=== PATIENT | female | born 1970 | race American Indian/Alaskan Native ===

== ENCOUNTER 2018-10-05 13:59 | Emergency (ER) | payer BC ==
[2018-10-05 14:38] VITALS: O2SAT 99
[2018-10-05] MEDS ORDERED: Sodium Chloride 0.9% 1,000 ML IV ONE (15:17)
[2018-10-05] MEDS ORDERED: Sodium Chloride 0.9% 1,000 ML ONE (16:01)
[2018-10-05 16:03] LABS: BASO # 0.1 K/uL (0.0-0.2); BASO % 1.2 % (0.0-2.0); EOS % 0.4 % (0.0-4.0); HEMOGLOBIN 13.1 g/dL (11.0-16.0); LYMPH # 2.3 K/uL (1.0-4.3); LYMPH % 37.2 % (20.0-40.0); MEAN CELL VOLUME 84.6 fL (81.0-99.0); MEAN CORPUSCULAR HEMOGLOBIN 27.8 pg (27.0-31.0); MEAN CORPUSCULAR HGB CONC 32.8 g/dL (33.0-37.0); MEAN PLATELET VOLUME 8.4 fL (7.2-11.7); MONO # 0.3 K/uL (0.0-0.8); MONO % 4.7 % (0.0-10.0); NEUT # 3.5 K/uL (1.8-7.0); NEUT % 56.5 % (50.0-75.0); RBC 4.73 Mil/uL (3.80-5.20); RED CELL DISTRIBUTION WIDTH 12.9 % (11.5-14.5); WHITE BLOOD COUNT 6.1 K/uL (4.8-10.8)
--- NOTE | 2018-10-05 16:08 | C.PDOC ---
History Of Present Illness 48 year old female, whose past medical history includes diabetes and gastroparesis, presents to the ED for evaluation of lower abdominal pain and vomiting which began today. Patient reports seeing some blood in her emesis today. She states she went to see her GI doctor today, but her symptoms seemed so severe that she was referred to the ED for further evaluation. Patient also reports chest pain after crying in the ED. She denies radiation of pain elsewhere as well as fever, chills, cough, syncope, recent travel. Patient states she had a normal bowel movement today. She was history of hospitalization on 06/2018 for gastroparesis. Time Seen by Provider: 10/05/18 14:58 Chief Complaint (Nursing): Abdominal Pain History Per: Patient History/Exam Limitations: no limitations Onset/Duration Of Symptoms: Hrs Current Symptoms Are (Timing): Still Present Location Of Pain/Discomfort: Other (lower abdomen ) Quality Of Discomfort: "Pain" Associated Symptoms: Nausea, Vomiting. denies: Fever, Chills, Constipation Additional History Per: Patient Past Medical History Reviewed: Historical Data, Nursing Documentation, Vital Signs Vital Signs: Last Vital Signs Temp 98.3 F 10/05/18 14:22 Pulse 109 H 10/05/18 14:22 Resp 20 10/05/18 14:22 BP Pulse Ox 99 10/05/18 14:22 - Medical History PMH: Diabetes Surgical History: No Surg Hx - [facility] Procedures LOC EXC LES METATAR/TAR (04/29/00) Family History: States: Unknown Family Hx - Social History Hx Tobacco Use: No Hx Alcohol Use: No Hx Substance Use: No - Immunization History Hx Tetanus Toxoid Vaccination: Yes Hx Influenza Vaccination: Yes Hx Pneumococcal Vaccination: Yes Review Of Systems Constitutional: Negative for: Fever, Chills Cardiovascular: Positive for: Chest Pain Respiratory: Negative for: Cough Gastrointestinal: Positive for: Nausea, Vomiting, Abdominal Pain, Hematemesis Physical Exam - Physical Exam Appears: Non-toxic, No Acute Distress, Chronically Ill, Other (thin ) Skin: Normal Color, Warm, Dry Head: Atraumatic, Normacephalic Eye(s): bilateral: Normal Inspection Oral Mucosa: Moist Neck: Supple Chest: Symmetrical, No Deformity, No Tenderness Cardiovascular: Rhythm Regular, No Murmur, Other (tachycardic. normal S1/S2) Respiratory: Normal Breath Sounds, No Rales, No Rhonchi, No Wheezing Gastrointestinal/Abdominal: Soft, Tenderness (diffuse ), No Guarding, No Rebound Extremity: Normal ROM, Capillary Refill (less than 2 seconds ) Neurological/Psych: Oriented x3, Normal Speech, Normal Cognition ED Course And Treatment - Laboratory Results Result Diagrams: 10/05/18 15:57 10/05/18 15:57 ECG: Interpreted By Me, Viewed By Me ECG Rhythm: Sinus Rhythm Interpretation Of ECG: Normal Sinus Rhythm at rate 74bpm. Rate From EC O2 Sat by Pulse Oximetry: 99 (on RA) Pulse Ox Interpretation: Normal - Other Rad CXR X-Ray: Viewed By Me, Read By Radiologist Interpretation: HISTORY: chest pain. COMPARISON: None available. TECHNIQUE: Chest PA and lateral. FINDINGS: LUNGS: Hyperinflation may be seen in setting of COPD. No focal consolidation. Please note that chest x-ray has limited sensitivity for the detection of pulmonary masses. PLEURA: No significant pleural effusion identified. No definite pneumothorax . CARDIOVASCULAR: Heart size appears within normal limits. Atherosclerotic calcifications present. OSS EOUS STRUCTURES: No acute osseous abnormality identified. VISUALIZED UPPER ABDOMEN: Unremarkable. OTHER FINDINGS: None. IMPRESSION: Hyperinflation may be seen in setting of COPD. - CT Scan/US Abdomen obstructive series Other Rad Studies (CT/US): Interpreted By Me (preliminary read shows no obstruction, no free air. stool scattered throughout colon ) Medical Decision Making Medical Decision Making: Impression: 48 year old female with lower abdominal pain, vomiting Plan: * bloodwork * urinalysis * CXR * Obstructive Series Abdomen XR * EKG * Reglan IVP * IV Fluids * reassess and disposition Progress: Bloodwork, urinalysis, CXR, Obstructive Series XR, EKG ordered and reviewed. Reglan IVP and IV Fluids given. 1855: Case discussed with Dr. Taylor, who advises patient to reschedule ap pointment with him. On reassessment, patient is resting comfortably, showing no signs of distress and is stable for discharge. Patient is advised to follow up with Dr. Taylor within 1-2 days for further evaluation. Advised to return to the ED if symptoms persist or worsen. Disposition Counseled Patient/Family Regarding: Studies Performed, Diagnosis, Need For Followup - Disposition Referrals: Nasim Taylor MD [Staff Provider] - Disposition: HOME/ ROUTINE Disposition Time: 19:20 Condition: IMPROVED Additional Instructions: GURPREET VIVAS, thank you for letting us take care of you today. Your provider was Alethea Campbell MD and you were treated for SENT BY PMD/BODY PAIN. The emergency medical care you received today was directed at your acute symptoms. If you were prescribed any medication, please fill it and take as directed. It may take several days for your symptoms to resolve. Return to the Emergency Department if your symptoms worsen, do not improve, or if you have any other problems. Please contact your doctor . Bring any paperwork you were given at discharge with you along with any medications you are taking to your follow up visit. Our treatment cannot replace ongoing medical care by a primary care provider outside of the emergency department. Thank you for allowing the [facility] team to be part of your care today. If you had an X-Ray or CT scan: A Radiologist will review the ED reading if any change in treatment is needed we will contact you. If you had a blood, urine, or wound culture: It will take several days for the results, if any change in treatment is needed we will contact you. If you had an STI test: It will take 48 hours for the results. Please call after 1 week if you have not heard back. Instructions: Hypokalemia (DC), Acute Abdomen (Belly Pain), Adult (DC), Hyperglycemia, Adult (DC), Gastroparesis (Delayed Gastric Emptying) Forms: [employer] [facility] (Khmer), General Discharge Instructions - POA Present On Arrival: None - Clinical Impression Clinical Impression: Abdominal pain, Constipation, Gastroparesis, Hyperglycemia, Hypokalemia - Scribe Statement The provider has reviewed the documentation as recorded by the Scribe (Qi John) Provider Attestation: All medical record entries made by the Scribe were at my direction and person ally dictated by me. I have reviewed the chart and agree that the record accurately reflects my personal performance of the history, physical exam, medical decision making, and the department course for this patient. I have also personally directed, reviewed, and agree with the discharge instructions and disposition.
[2018-10-05 16:15] LABS: ALB/GLOB RATIO 1.3 (1.0-2.1); ALBUMIN 4.3 g/dL (3.5-5.0); ALT/SGPT 20 U/L (9-52); AST/SGOT 20 U/L (14-36); BLOOD UREA NITROGEN 9 mg/dL (7-17); CALCIUM 9.5 mg/dl (8.6-10.4); GFR NON-AFRICAN AMERICAN > 60; LIPASE 25 U/L (23-300)
[2018-10-05] MEDS ORDERED: Potassium Chloride 20 mEq ER Tab PO STA (16:18)
[2018-10-05] MEDS ORDERED: Potassium Chloride 20 mEq ER Tab PO ONE (17:00)
[2018-10-05 17:13] LABS: SQUAMOUS EPITHIAL 2 /hpf (0-5); URINE BILIRUBIN NEGATIVE (NEGATIVE); URINE BLOOD NEGATIVE (NEGATIVE); URINE CLARITY Clear (Clear); URINE COLOR Yellow (YELLOW); URINE GLUCOSE (UA) 3+ mg/dL (Normal); URINE LEUKOCYTE ESTERASE NEG Leu/uL (Negative); URINE PROTEIN NEGATIVE (NEGATIVE)
--- NOTE | 2018-10-05 17:50 | RAD ---
HISTORY: chest pain COMPARISON: None available TECHNIQUE: Chest PA and lateral FINDINGS: LUNGS: Hyperinflation may be seen in setting of COPD. No focal consolidation. Please note that chest x-ray has limited sensitivity for the detection of pulmonary masses. PLEURA: No significant pleural effusion identified. No definite pneumothorax . CARDIOVASCULAR: Heart size appears within normal limits. Atherosclerotic calcifications present. OSSEOUS STRUCTURES: No acute osseous abnormality identified. VISUALIZED UPPER ABDOMEN: Unremarkable. OTHER FINDINGS: None. IMPRESSION: Hyperinflation may be seen in setting of COPD.
[2018-10-05 17:55] VITALS: PULSE 86
[2018-10-05 19:31] VITALS: BP 130/86; RESP 18; TEMP 98.6
--- NOTE | 2018-10-06 13:38 | RAD ---
Date of service: 10/05/2018 PROCEDURE: Radiographs of the lower chest and abdomen (obstructive series) HISTORY: abd pain COMPARISON: None available. TECHNIQUE: AP radiograph of the chest, with upright and supine radiographs of the abdomen. FINDINGS: CHEST: Mid to upper lung rey are excluded from view. Lung bases reveal: Partially imaged heart size within normal limits. No visible focal consolidation, significant pleural effusion, or definite pneumothorax. ABDOMEN AND PELVIS: Nonspecific bowel gas pattern. No definite free air. Pelvic calcifications, likely phleboliths. No acute osseous abnormality is detected. IMPRESSION: No acute findings identified.
== END 2018-10-05 19:31 | disposition home or self-care (01) ==
LOC: C.ER 13:59
DX: K59.00 Constipation, unspecified (principal); E87.6 Hypokalemia; E11.65 Type 2 diabetes mellitus with hyperglycemia; E11.43 Type 2 diabetes mellitus with diabetic autonomic (poly)neuropathy; K31.84 Gastroparesis; R10.30 Lower abdominal pain, unspecified
CPT/HCPCS: 71046; 74022; 80053; 81001; 83690; 84484; 84703; 85025; 96374; 99284; J2765; J7030

== ENCOUNTER 2018-10-25 10:54 | Outpatient (CLI) | payer BC | END 2018-10-25 10:55 | disposition home or self-care (01) | LOC: C.CTH 10:54 | DX: R63.4 Abnormal weight loss (principal) ==

== ENCOUNTER 2018-11-26 11:07 | Emergency (ER) | payer BC ==
[2018-11-26] MEDS ORDERED: Sodium Chloride 0.9% 1,000 ML IV ONE (11:46)
[2018-11-26] MEDS ORDERED: Sodium Chloride 0.9% 1,000 ML ONE (12:12)
[2018-11-26 12:37] LABS: BASO # 0.1 K/uL (0.0-0.2); BASO % 1.3 % (0.0-2.0); EOS % 0.2 % (0.0-4.0); HEMOGLOBIN 13.5 g/dL (11.0-16.0); LYMPH # 2.1 K/uL (1.0-4.3); MEAN CELL VOLUME 85.7 fL (81.0-99.0); MEAN CORPUSCULAR HEMOGLOBIN 28.4 pg (27.0-31.0); MEAN CORPUSCULAR HGB CONC 33.1 g/dL (33.0-37.0); MEAN PLATELET VOLUME 7.8 fL (7.2-11.7); MONO # 0.7 K/uL (0.0-0.8); MONO % 9.8 % (0.0-10.0); NEUT # 3.9 K/uL (1.8-7.0); NEUT % 57.7 % (50.0-75.0); NRBC % 0.1 % (0.0-2.0); RBC 4.76 Mil/uL (3.80-5.20); RED CELL DISTRIBUTION WIDTH 13.1 % (11.5-14.5); WHITE BLOOD COUNT 6.8 K/uL (4.8-10.8)
[2018-11-26] MEDS ORDERED: Iodixanol 320 mg/ml 150 ml Bottle IV ONE (12:49)
--- NOTE | 2018-11-26 12:59 | C.PDOC ---
History Of Present Illness 48 year old female presents to the ED for evaluation s/p syncopal episode. Patient was at work when she passed out. States she is unsure why. Patient reports having a normal breakfast this morning and took her blood sugar medications as per usual. She then awoke on the ground and had developed abdominal pain associated with nausea. Pain is described as diffuse, but worse at the upper quadrants. She also reports feeling tired. Otherwise patient denies any injury, dizziness, headache, vomiting, diarrhea, visual changes, slurred s peech, chest pain, or SOB. Patient does have a PMHx of gastroparesis as well as diabetes mellitus. Time Seen by Provider: 11/26/18 11:32 Chief Complaint (Nursing): Abdominal Pain History Per: Patient History/Exam Limitations: no limitations Onset/Duration Of Symptoms: Hrs Current Symptoms Are (Timing): Still Present Quality Of Discomfort: "Pain" Past Medical History Reviewed: Historical Data, Nursing Documentation, Vital Signs Vital Signs: Last Vital Signs Temp Pulse 99 H 11/26/18 11:10 Resp 22 11/26/18 11:10 BP Pulse Ox 96 11/26/18 11:10 - Medical History PMH: Diabetes Other PMH: Gastroparesis - [facility] Procedures LOC EXC LES METATAR/TAR (04/29/00) Family History: States: Unknown Family Hx - Social History Hx Tobacco Use: No Hx Alcohol Use: No Hx Substance Use: No - Immunization History Hx Tetanus Toxoid Vaccination: Yes Hx Influenza Vaccination: Yes Hx Pneumococcal Vaccination: Yes Review Of Systems Constitutional: Positive for: Weakness ("feeling tired"). Negative for: Fever, Sweats Cardiovascular: Negative for: Chest Pain, Palpitations Respiratory: Negative for: Cough, Shortness of Breath Gastrointestinal: Positive for: Nausea, Abdominal Pain. Negative for: Vomiting, Diarrhea Musculoskeletal: Negative for: Back Pain, Leg Pain Skin: Negative for: Lesions, Bruising Neurological: Positive for: Other (+syncopal episode). Negative for: Weakness, Numbness, Headache, Dizziness Physical Exam - Physical Exam Appears: Well, Non-toxic, No Acute Distress Skin: Warm, Dry, No Diaphoretic Head: Atraumatic, Normacephalic Eye(s): bilateral: Normal Inspection Oral Mucosa: Moist Neck: Normal ROM Chest: Symmetrical Cardiovascular: Rhythm Regular, No Murmur Respiratory: Normal Breath Sounds, No Accessory Muscle Use Gastrointestinal/Abdominal: Soft, Tenderness (diffuse), No Distention, No Guarding, No Rebound Back: No CVA Tenderness, No Vertebral Tenderness Extremity: Bilateral: Atraumatic (no gross swelling, ecchymosis, or point tenderness), Normal Color And Temperature, Normal ROM Neurological/Psych: Oriented x3, Normal Speech, Normal Cranial Nerves, No Cerebellar Signs, Normal Motor, Normal Sensation Gait: Steady ED Course And Treatment - Laboratory Results Result Diagrams: 11/26/18 12:34 11/26/18 13:48 Lab Interpretation: Abnormal ECG: Interpreted By Me ECG Rhythm: Sinus Rhythm ECG Interpretation: Normal Rate From EC O2 Sat by Pulse Oximetry: 96 (RA) Pulse Ox Interpretation: Normal - CT Scan/US abd/pelvis Other Rad Studies (CT/US): Read By Radiologist, Radiology Report Reviewed CT/US Interpretation: Accession No. : [id number]. Patient Name / ID : SHERRI VÁZQUEZ / [id number]. Exam Date : 11/26/2018 16:10:52 ( Approved ). Study Comment : Sex / Age : F / 48Y. Creator : Abigail Jain. Dictator : Marlys De Jesus MD. Claims Examiner : [employer]er : Marlys De Jesus MD. Approver2 : Report Date : 11/26/2018 16:21:07. My Comment : . Date of service: 11/26/2018. PROCEDURE: CT Abdomen and Pelvis with contrast. HISTORY: upper abdominal pain vomiting. COMPARISON: CT abdomen and pelvis with contrast performed 10/25/18. TECHNIQUE: Contrast dose: 100 CC Visipaque 320 IV. Radiation dose:240.01. Total exam DLP = 240.01 mGy-cm. This CT exam was performed using one or more of the following dose reduction techniques: Automated exposure control, adjustment of the mA and/or kV according to patient size, and/or use of iterative reconstruction technique. FINDINGS: LOWER THORAX: No visible consolidation, pleural effusion, or pneumothorax. LIVER: Unremarkable. GALLBLADDER AND BILE DUCTS: Unremarkable. PANCREAS: Unremarkable. SPLEEN: Numerous indeterminate too small to characterize splenic hypodensities. ADRENALS: Unremarkable. KIDNEYS AND URETERS: The kidneys enhance symmetrically. No hydronephrosis or obstructing calculus identified. VASCULATURE: No aortic aneurysm. No atherosclerotic calcification or mural plaque present. BOWEL: Evidence of gastric wall thickening, possibly exaggerated by nondistended state. Lack of oral contrast limits evaluation for bowel pathology. Bowel loops appear within normal limits of caliber without evidence of obstruction. APPENDIX: The appendix appears within normal limits of caliber. No secondary signs of acute appendicitis. PERITONEUM: No significant free fluid. No definite free air. LYMPH NODES: No bulky adenopathy identified. BLADDER: Unremarkable. REPRODUCTIVE: Uterus is present and appears heterogeneous with suspected fibroid. BONES: Degenerative changes. OTHER FINDINGS: None. IMPRESSION: Numerous indeterminate too small to characterize splenic hypodensities. Evidence of gastric wall thickening, possibly exaggerated by nondistended state. Correlate clinically for possibility of gastritis. Suggest further evaluation with endoscopy if issa cated. Uterus is present with and appears heterogeneous with suspected fibroid. Pelvic ultrasound may be considered for further evaluation. Medical Decision Making Medical Decision Making: Impression: 48 year old s/p syncope Initial Plan: - EKG - Blood work - Urinalysis - CT Abd/Pelvis - IV fluids - 10 mg IV reglan - 30 mg IV toradol - 20 mg IV pepcid - reassess Progress: 1420 Labs reviewed shows hypokalemia. Oral and IV potassium ordered. CT pending 1645 CT reviewed: Evidence of gastric wall thickening, possibly exaggerated by nondistended state. Correlate clinically for possibility of gastritis. 1700 Patient re-evaluated and was resting comfortably reported feeling much better. Patient was tolerating PO. Discussed results with patient, and copy of report was provided. Patient feels comfortable going home and will be discharged. Patient given follow up instructions. Instructed to return to ER if symptoms worsen or new symptoms arise. Disposition Counseled Patient/Family Regarding: Diagnosis, Need For Followup, Rx Given - Disposition Referrals: Roque Barajas [Staff Provider] - Disposition: HOME/ ROUTINE Disposition Time: 17:04 Condition: IMPROVED Additional Instructions: Take medications as directed follow up with your primary doctor Prescriptions: Omeprazole 40 mg PO DAILY PRN #30 capsule.dr BELTRÁN Reason: Gi Distress Potassium Chloride 10 meq PO DAILY #5 capsule.er Instructions: Hypokalemia (DC), Gastroparesis (Delayed Gastric Emptying) (DC) Forms: [facility] (Slovenian), Work Excuse - POA Present On Arrival: None - Clinical Impression Clinical Impression: Hypokalemia, Gastroparesis - PA / HEALTH [employer]OMOTION SPECIALIST / Resident Statement MD/DO has reviewed & agrees with the documentation as recorded. - Scribe Statement The provider has reviewed the documentation as recorded by the Byronibkristal Johnson All medical record entries made by the Jose were at my direction and personally dictated by me. I have reviewed the chart and agree that the record accurately reflects my personal performance of the history, physical exam, medical decision making, and the department course for this patient. I have also personally directed, reviewed, and agree with the discharge instructions and disposition.
[2018-11-26 13:12] LABS: SQUAMOUS EPITHIAL 14 /hpf (0-5); URINE BILIRUBIN NEGATIVE (NEGATIVE); URINE BLOOD NEGATIVE (NEGATIVE); URINE CLARITY Hazy (Clear); URINE COLOR Yellow (YELLOW); URINE GLUCOSE (UA) NORMAL (Normal); URINE LEUKOCYTE ESTERASE NEG Leu/uL (Negative); URINE PROTEIN NEGATIVE (NEGATIVE); URINE UROBILINOGEN NORMAL mg/dL (0.2-1.0)
[2018-11-26 13:27] LABS: BARBITURATES, UR NEGATIVE (NEGATIVE); BENZODIAZEPINES, UR NEGATIVE (NEGATIVE); OPIATES, UR NEGATIVE (NEGATIVE); PHENCYCLIDINE, UR NEGATIVE (NEGATIVE)
[2018-11-26 14:10] LABS: ALB/GLOB RATIO 1.3 (1.0-2.1); ALBUMIN 4.3 g/dL (3.5-5.0); ALT/SGPT 31 U/L (9-52); AMYLASE 78 U/L (30-110); AST/SGOT 37 U/L (14-36); BLOOD UREA NITROGEN 19 mg/dL (7-17); CALCIUM 9.4 mg/dl (8.6-10.4); GFR NON-AFRICAN AMERICAN > 60; LIPASE 17 U/L (23-300)
[2018-11-26] MEDS ORDERED: Potassium Chloride 20 mEq ER Tab PO STA (14:20)
[2018-11-26] MEDS ORDERED: Potassium Chloride 20 mEq ER Tab PO ONE (14:48)
[2018-11-26] MEDS ORDERED: Iodixanol 320 MG/ML 100 ML BOTTLE IV ONE (15:07)
--- NOTE | 2018-11-26 16:49 | CT ---
Date of service: 11/26/2018 PROCEDURE: CT Abdomen and Pelvis with contrast HISTORY: upper abdominal pain vomiting COMPARISON: CT abdomen and pelvis with contrast performed 10/25/18 TECHNIQUE: Contrast dose: 100 CC Visipaque 320 IV. Radiation dose:240.01 Total exam DLP = 240.01 mGy-cm. This CT exam was performed using one or more of the following dose reduction techniques: Automated exposure control, adjustment of the mA and/or kV according to patient size, and/or use of iterative reconstruction technique. FINDINGS: LOWER THORAX: No visible consolidation, pleural effusion, or pneumothorax. LIVER: Unremarkable. GALLBLADDER AND BILE DUCTS: Unremarkable. PANCREAS: Unremarkable. SPLEEN: Numerous indeterminate too small to characterize splenic hypodensities. ADRENALS: Unremarkable. KIDNEYS AND URETERS: The kidneys enhance symmetrically. No hydronephrosis or obstructing calculus identified. VASCULATURE: No aortic aneurysm. No atherosclerotic calcification or mural plaque present. BOWEL: Evidence of gastric wall thickening, possibly exaggerated by nondistended state. Lack of oral contrast limits evaluation for bowel pathology. Bowel loops appear within normal limits of caliber without evidence of obstruction. APPENDIX: The appendix appears within normal limits of caliber. No secondary signs of acute appendicitis. PERITONEUM: No significant free fluid. No definite free air. LYMPH NODES: No bulky adenopathy identified. BLADDER: Unremarkable. REPRODUCTIVE: Uterus is present and appears heterogeneous with suspected fibroid. BONES: Degenerative changes. OTHER FINDINGS: None. IMPRESSION: Numerous indeterminate too small to characterize splenic hypodensities. Evidence of gastric wall thickening, possibly exaggerated by nondistended state. Correlate clinically for possibility of gastritis. Suggest further evaluation with endoscopy if indicated. Uterus is present with and appears heterogeneous with suspected fibroid. Pelvic ultrasound may be considered for further evaluation.
[2018-11-26 17:29] VITALS: BP 132/84; PULSE 93; RESP 20; TEMP 98.1
[2018-11-26 18:28] VITALS: O2SAT 96
--- NOTE | 2018-11-29 12:48 | CARD ---
APPROVED REPORT Date of service: 11/26/2018 EKG Measurement Heart [id number] <Conclusion> Normal sinus rhythm Normal ECG
== END 2018-11-26 17:30 | disposition home or self-care (01) ==
LOC: C.ER 11:07
DX: E87.6 Hypokalemia (principal); E11.43 Type 2 diabetes mellitus with diabetic autonomic (poly)neuropathy; K31.84 Gastroparesis
CPT/HCPCS: 74177; 80053; 81001; 81025; 82150; 82948; 83690; 85025; 96374; 96375; 99285; G0480; J1885; J2765; J3480; J7030; Q9967

== ENCOUNTER 2018-12-09 17:06 | Emergency (ER) | payer BC | END 2018-12-09 20:10 | disposition home or self-care (01) | LOC: C.ER 17:06 ==